=== PATIENT | male | born 1930 | race African-American/Black ===

== ENCOUNTER → 2020-02-02 | Outpatient (CLI) | payer MEDICARE ==
[~2020-02-02] MED LIST: ASPI-1497 MT; LIP40 MT
== END | disposition home or self-care (01) ==
LOC: LAB 09:05
PROVIDERS: ATTEND Specialist
DX: R05 Cough (principal); Z20.828 Contact with and (suspected) exposure to other viral communicable diseases
CPT/HCPCS: C9803; U0003

== ENCOUNTER → 2020-02-04 | Day surgery (SDC) | payer MEDICARE ==
[~2020-02-04] VITALS: Ht 180.3 cm; Wt 75.7 kg
[~2020-02-04] MED LIST changes: +ATROPINE SULFATE 1MG/10ML SYR IV PRN; +FENTANYL CITRATE/PF 50MCG/ML 2ML VIAL ONE; +HEPARIN SODIUM 1,000 UNIT/1ML VIAL IV ONE; +IODIXANOL 320MG/ML 100 ML BOTTLE IV ONE; +LIDOCAINE HCL 1% 20ML VIAL (Pyxis) INJ ONE; +MIDAZOLAM HCL 2 MG/2 ML VIAL ONE; +ONDANSETRON HCL 4MG/2ML INJ IV PRN
== END | disposition home or self-care (01) ==
LOC: CCL 06:24
PROVIDERS: ATTEND Specialist
DX: I25.10 Atherosclerotic heart disease of native coronary artery without angina pectoris (principal); R07.89 Other chest pain; I10 Essential (primary) hypertension; E78.5 Hyperlipidemia, unspecified; Z87.891 Personal history of nicotine dependence; Z95.5 Presence of coronary angioplasty implant and graft; Z79.899 Other long term (current) drug therapy; Z98.890 Other specified postprocedural states; Z79.82 Long term (current) use of aspirin
CPT/HCPCS: 93458; C1760; C1769; C1887; C1893; J1644; J2250; J3010; J3490; Q9967; 99152; G0500